=== PATIENT | female | born 2000 | race Caucasian/White ===

== ENCOUNTER 2024-12-10 11:05 | Outpatient (CLI) | payer OTHER, SELFPAY ==
--- NOTE | ~2024-12-10 | XR_ITS ---
XR lumbar spine min 4V 12/10/2024 11:38 Indication: Back pain Procedure: 5 views lumbar spine Comparison: No prior studies for comparison. Findings: No fracture, subluxation or dislocation. Vertebral body heights are maintained. No evidence for spondylolisthesis. Pedicles intact. Sacral foramen are symmetric. Impression: 1: No significant abnormality of the lumbar spine. Reviewed, dictated and finalized at location A. Impression: 1: No significant abnormality of the lumbar spine.
--- OUTSIDE RECORDS SUMMARY | 2024-12-10 11:22 | XMS_ITS | Clinical Summary ---
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 Gender Identity Not on file Sexual Orientation Not on file Plan of Treatment Health Maintenance Due Date Last Done Comments Hepatitis C Virus (HCV) Screening 2000 Pap Smear 2021 Influenza Immunization (#1) 01/20/202406/21, 04/09/2014, 04/15/2013, Additional history exists SARS-COV-2 Immunization (2023- season) 2024 Respiratory Syncytial Virus (RSV) Immunization (Adult) (1 - 1-dose 75+ series) 09/19/2075 Pneumococcal Immunization Combined Aged Out 04/23/2001, 01/22/2001, 2000 No longer eligible based on patient's age to complete this topic Hepatitis B Immunization Completed 002, 2000, 2000 DTaP/Tdap/Td Immunization Discontinued 2011, 12/18/2005, 01/02/2003, Additional history exists TdaP Immunization Completed 12/29/2011 Human Papillomavirus (HPV) Immunization Completed 09/21/2012, 03/09/2012, 12/29/2011 Meningococcal Immunization (ACWY) Completed 07/09/2017, 12/29/2011 Meningococcal B Immunization Completed 08/06/2017, 07/09/2017 Rotavirus Immunization Aged Out No lo nger eligible based on patient's age to complete this topic
--- OUTSIDE RECORDS SUMMARY | 2024-12-10 11:22 | XMS_ITS | Clinical Summary ---
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 This disclosure is being madepursuant to the Care Everywhere program and may not contain all information available regarding this patient. Last updated 18.[employer] [facility] Allergies No known active allergies Medications * Be aware that medications may not be up to date on this document. Alwaysverify current medications with the patient. medroxyPROGESTER one (DEPO-PROVERA) 150 MG/ML vial Inject into muscle once Active Active Problems Problem Noted Date Diagnosed Date Closed fracture of metatarsal bone 04/22/2013 Overview (02/18/2015): Fracture of patella, right, closed 11/05/2012 Social History Tobacco Use Types Packs/Day Years Used Date Smoking Tobacco: Never Smokeless Tobacco: Never Tobacco Cessation:Counseling Given: Yes Alcohol Use Standard Drinks/Week Comments No 0 (1 standard drink = 0.6 oz pur e alcohol) PHQ-2 Answer Date Recorded PHQ2 TOTAL SCORE 0 11/28/2020 Comments No Sex and Gender Information Value Date Recorded Sex Assigned at Not on file 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 Gender Identity Not on file Sexual Orientation Not on file Last Filed Vital Signs Vital Sign Reading Time Taken Comments Blood Pressure 118/70 11/28/2020 10:07 AM CDT Pulse 64 11/28/2020 10:07 AM CDT Temperature 36.7 C (98 F) 11/28/2020 10:07 AM CDT Respiratory Rate 14 11/28/2020 10:07 AM CDT Oxygen Saturation 98% 11/28/2020 10:07 AM CDT Inhaled Oxygen Concentration - - Weight 96.2 kg (212 lb) 11/28/2020 10:07 AM CDT Height 173.5 cm (5' 8.31) 11/28/2020 10:07 AM C DT Body Mass Index 31.95 11/28/2020 10:07 AM CDT Plan of Treatment Health Maintenance Due Date Last Done Comments HIV SCREENING 09/19/2015 HPV VACCINE (1 - 3-dose series) 09/19/2015 CHLAMYDIA/GONORRHEA SCREENING 2016 HEPATITIS C SCREENING 09/14/2018 DTAP/TDAP/TD VACCINES (1 - Tdap) 09/19/2019 HEPATITIS B VACCINE (1 of 3 - 19+ 3-dose series) 09/19/2019 COVID-19 VACCINE (3 - 2023- season) 2024 08/27/2020, 07/30/2020 DEPRESSION SCREENING 05/21/2024 INFLUENZA VACCINE (#1) 2025 2, 07/09/2017, 04/15/2013, Additional history exists ZOSTER VACCINE (1 of 2) 2050 HIB VACCINE Aged Out No longer eligi ble based on patient's age to complete this topic MENINGOCOCCAL (Group B) VACCINE SHARED DECISION-MAKING Aged Out No longer eligible based on patient's age to complete this topic MENINGOCOCCAL GROUPS A/C/Y/W VACCINE Aged Out No longer eligible based on patient's age to complete this topic PNEUMOCOCCAL VACCINE Aged Out No long er eligible based on patient's age to complete this topic Insurance [facility] Care Teams Drawing Supervisor Relationship Specialty Start Date End Date Devyn Lui MD [address] [place] [id number] PCP - General 09/19/21
[2024-12-10 11:34] LABS: Hematocrit 42.7 % (37.0-47.0); Hemoglobin 13.9 g/dL (12.0-15.0); Immature Granulocyte Percent A 0.4 % (0-0.5); Lymphocytes Absolute Auto 2.72 K/mm3 (0.9-3.2); Mean Corpuscular HGB Conc 32.6 g/dl (32-36); Mean Corpuscular Hemoglobin 29.0 pg (26-34); Mean Corpuscular Volume 89.1 fl (80-100); Nucleated Red Blood Cells Absolute Auto 0.000 K/mm3 (0.0-0.012); Nucleated Red Blood Cells Perc 0.0 % (0.0-0.2); Platelet Count Result 217 k/mm3 (150-375); Red Blood Count 4.79 M/mm3 (4.2-5.4); White Blood Count 8.1 K/mm3 (4.5-10.0)
[2024-12-10 11:53] LABS: Hemoglobin A1C 5.2 % (<5.7)
[2024-12-10 12:13] LABS: Alanine Aminotransferase 30 U/L (6-35); Albumin Level 4.9 g/dL (3.5-5.1); Alkaline Phosphatase 52 U/L (38-126); Anion Gap 9 mmol/L (4-12); Aspartate Amino Transferase 39 U/L (14-36); Bilirubin,Total 0.7 mg/dL (0.2-1.3); Blood Urea Nitrogen 13 mg/dL (7-17); Calcium 9.4 mg/dL (8.4-10.2); Carbon Dioxide 25 mmol/L (22-30); Chloride 102 mmol/L (98-107); Cholesterol 158 mg/dL (0-200); Estimated Glomerular Filt Rate > 60; Glucose 87 mg/dL (65-110); HDL Direct 55 mg/dL; Potassium 4.0 mmol/L (3.4-5.0); Sodium 136 mmol/L (137-145); Total Protein 8.0 g/dL (6.3-8.2); Triglycerides 90 mg/dL (<150)
[2024-12-10 12:30] LABS: Thyroid Stimulating Hormone Reflex 0.675 uIU/mL (0.465-4.68)
== END 2024-12-10 11:06 | disposition home or self-care (01) ==
LOC: ANHLAB 11:07
PROVIDERS: PCP Family Medicine; Visit Provider Family Medicine
DX: Z13.1 Encounter for screening for diabetes mellitus (principal); Z13.6 Encounter for screening for cardiovascular disorders; R53.83 Other fatigue; M54.9 Dorsalgia, unspecified
CPT/HCPCS: 36415; 72110; 80053; 80061; 83036; 84443; 85025